=== PATIENT | female | born 2000 | race Caucasian/White ===

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

== ENCOUNTER 2019-07-28 22:23 | Emergency (ER) | payer OTHER ==
[~2019-07-28] VITALS: Ht 165.1 cm; Wt 63.6 kg
[~2019-07-28 22:23] MED LIST: PREDNISONE20 MG PO; PROAIR HFA0.09 MG/AC IH
[2019-07-28 22:27] VITALS: BP 138/74; TEMP 98.1
[2019-07-29] MEDS ORDERED: PREDNISONE20 MG PO (01:08)
[2019-07-29 01:15] VITALS: PULSE 88
== END 2019-07-29 01:15 | disposition home or self-care (01) ==
LOC: COL.ER 22:23
DX: J45.901 Unspecified asthma with (acute) exacerbation (principal)
CPT/HCPCS: J1885; J7512

== ENCOUNTER 2020-05-25 20:38 | Emergency (ER) | payer OTHER ==
[~2020-05-25] VITALS: Ht 165.1 cm; Wt 63.6 kg
[2020-05-25 20:41] VITALS: TEMP 97.5
[2020-05-25] MEDS ORDERED: EPIPEN 2-PAK1 MG/ML IM (22:32)
[2020-05-26 00:58] VITALS: BP 95/73; PULSE 68
== END 2020-05-26 01:01 | disposition home or self-care (01) ==
LOC: COL.ER 20:38
DX: T78.05XA Anaphylactic reaction due to tree nuts and seeds, initial encounter (principal)
CPT/HCPCS: J0171; J1200; J2405; J2930; J7030; J7512

== ENCOUNTER 2021-01-03 17:05 | Emergency (ER) | payer OTHER ==
[~2021-01-03] VITALS: Ht 165.1 cm; Wt 68.2 kg
[~2021-01-03 17:05] MED LIST changes: +EPIPEN 2-PAK1 MG/ML IM
[2021-01-03 17:10] VITALS: TEMP 97.9
[2021-01-03 18:00] LABS: COLLECTION METHOD CLEAN CATCH
[2021-01-03 18:11] LABS: MUCOUS Present /lpf; PH 6 (5-8); URINE APPEARANCE Hazy; URINE BACTERIA Rare /hpf; URINE BILIRUBIN Negative (NEGATIVE); URINE BLOOD 3+ (NEGATIVE); URINE COLOR Yellow; URINE GLUCOSE Negative (NEGATIVE); URINE KETONE Negative (NEGATIVE); URINE LEUKOCYTE ESTERASE Negative (NEGATIVE); URINE NITRATE Negative (NEGATIVE); URINE PROTEIN(semi-quant) 1+ (NEGATIVE); URINE UROBILINOGEN Negative (NEGATIVE)
[2021-01-03 18:38] LABS: BASO # 0.1 (0.0-0.2); BASO % 0.6 % (0.0-2.0); EOS # 0.4 (0.0-0.7); GRAN # 5.6 (1.4-6.5); GRAN % 54.1 % (42.2-75.2); HEMATOCRIT 37.5 % (37.0-47.0); HEMOGLOBIN 12.8 g/dl (12.5-16.0); LYMPH # 3.7 (1.2-3.4); LYMPH % 36.2 % (20.0-51.0); MEAN CELL VOLUME 92 fl (80.0-100.0); MEAN CORPUSCULAR HEMOGLOBIN 31 pg (27.0-31.0); MEAN CORPUSCULAR HGB CONC 34 g/dl (33.0-37.0); MEAN PLATELET VOLUME 10.5 fl (7.4-10.4); MONO # 0.5 (0.1-0.6); MONO % 4.9 % (1.7-9.3); PLATELET COUNT 225 K/mm3 (130-400); RED BLOOD COUNT 4.09 M/mm3 (4.10-5.30); REDCELL DISTRIBUTION WIDTH-CV 12.2 % (11.5-14.5)
[2021-01-03 18:54] LABS: ALANINE AMINOTRANSFERASE 32 U/L (4-34); ALBUMIN 4.4 gm/dL (3.5-5.0); ALKALINE PHOSPHATASE 70 U/L (50-136); ANION GAP 9 mmol/L (7-16); AST,SGOT 29 U/L (15-37); BILIRUBIN,TOTAL 0.1 mg/dL (0.0-1.0); BLOOD UREA NITROGEN 17 mg/dL (7-17); CALCIUM 9.1 mg/dL (8.4-10.2); CARBON DIOXIDE 26 mmol/L (22-30); CHLORIDE 104 mmol/L (98-107); CREATININE, serum 0.88 (0.52-1.25); GLUCOSE 89 mg/dL (74-106); POTASSIUM 3.9 mmol/L (3.4-5.0); SODIUM 140 mmol/L (137-145)
[2021-01-03 19:03] LABS: C-REACTIVE PROTEIN < 0.5 mg/dL (0.0-0.9)
[2021-01-03 20:49] VITALS: BP 122/70; PULSE 81
== END 2021-01-03 20:45 | disposition home or self-care (01) ==
LOC: COL.ER 17:05
PROVIDERS: Nurse Practitioner
DX: R10.2 Pelvic and perineal pain (principal); R11.0 Nausea; N89.8 Other specified noninflammatory disorders of vagina; Z32.02 Encounter for pregnancy test, result negative; Z88.2 Allergy status to sulfonamides
CPT/HCPCS: J1170; J1200; J2405; J7030

== ENCOUNTER 2021-12-01 16:19 | Emergency (ER) | payer OTHER ==
[~2021-12-01] VITALS: Ht 165.1 cm; Wt 68.2 kg
[2021-12-01 17:21] LABS: BASO # 0.1 K/mm3 (0.0-0.2); BASO % 0.8 % (0.0-2.0); EOS # 0.2 K/mm3 (0.0-0.7); EOS % 1.9 % (0.0-4.0); GRAN # 5.6 K/mm3 (1.4-6.5); GRAN % 59.4 % (42.2-75.2); HEMATOCRIT 37.6 % (37.0-47.0); LYMPH % 31.3 % (20.0-51.0); MEAN CELL VOLUME 90 fl (80.0-100.0); MEAN CORPUSCULAR HEMOGLOBIN 31 pg (27-31); MEAN CORPUSCULAR HGB CONC 35 g/dl (33.0-37.0); MEAN PLATELET VOLUME 10.5 fl (7.4-10.4); MONO # 0.6 K/mm3 (0.1-0.6); MONO % 6.4 % (1.7-9.3); PLATELET COUNT 298 K/mm3 (130-400); RED BLOOD COUNT 4.19 M/mm3 (4.10-5.30); REDCELL DISTRIBUTION WIDTH-CV 13.2 % (11.5-14.5)
[2021-12-01 17:44] LABS: ALBUMIN 4.4 gm/dL (3.5-5.0); BILIRUBIN,TOTAL 0.3 mg/dL (0.2-1.2); CALCIUM 9.2 mg/dL (8.4-10.2); CREATININE, serum 0.87 mg/dL (0.57-1.11); TOTAL PROTEIN 7.8 gm/dL (6.2-8.1)
[2021-12-01 19:16] LABS: COLLECTION METHOD CLEAN CATCH
[2021-12-01 19:22] LABS: MUCOUS Present (NOT PRESENT); PH 8 (5-8); URINE APPEARANCE Hazy (CLEAR/HAZY); URINE BACTERIA None Seen /hpf (NONE SEEN); URINE BILIRUBIN Negative (NEGATIVE); URINE BLOOD 1+ (NEGATIVE); URINE COLOR Yellow (YELLOW); URINE GLUCOSE Negative (NEGATIVE); URINE KETONE Negative (NEGATIVE); URINE LEUKOCYTE ESTERASE Negative (NEGATIVE); URINE NITRATE Negative (NEGATIVE); URINE PROTEIN(semi-quant) 1+ (NEGATIVE); URINE UROBILINOGEN Negative (NEGATIVE)
[2021-12-01] MEDS ORDERED: ZOFRAN ODT4 MG PO (19:34)
[2021-12-01 20:00] VITALS: BP 135/82; PULSE 75
== END 2021-12-01 20:00 | disposition home or self-care (01) ==
LOC: COL.ER 16:19
PROVIDERS: Physician Assistant
DX: R11.2 Nausea with vomiting, unspecified (principal); R10.32 Left lower quadrant pain; Z86.16 Personal history of COVID-19; Z32.02 Encounter for pregnancy test, result negative
CPT/HCPCS: J0780; J2405; J7030